=== PATIENT | female | born 1955 | race Caucasian/White ===

== ENCOUNTER 2021-04-12 07:57 | Emergency (ER) | payer MEDICARE, OTHER ==
[~2021-04-12] VITALS: Ht 170.2 cm; Wt 137.0 kg
[~2021-04-12 07:57] MED LIST: LEVO50TA8 PO; LISINOPRIL/HCTZ PO; MECL-159 PO; ONDA8TAB9 PO
[2021-04-12] MEDS ORDERED: ketorolac trometh. 30mg/ml inj. IM ONE (08:45)
[2021-04-12 09:29] LABS: CLARITY,URINE SLIGHTLY CLOUDY (Clear); COLOR,URINE YELLOW (Yellow); GLUCOSE, URINE NEGATIVE (Neg); KETONES,URINE NEGATIVE (Neg); LEUKOCYTE ESTERASE ,URINE NEGATIVE (Neg); NITRITES, URINE NEGATIVE (Neg); OCCULT BLOOD,URINE NEGATIVE (Neg); PROTEIN,URINE NEGATIVE (Neg)
[2021-04-12 09:34] LABS: UA COLLECTION TYPE CLN CATCH MIDSTREAM
[2021-04-12 09:35] LABS: MUCUS STRANDS FEW /LPF (Neg); SQUAMOUS EPITHELIAL CELL,UR MODERATE /LPF (FEW)
[2021-04-12 09:36] LABS: BACTERIA,URINE FEW /HPF (Neg); RBC,URINE 0-2 /HPF (0-2); WBC,URINE 0-4 /HPF (0-4); YEAST FEW /HPF (NEGATIVE)
[2021-04-12] MEDS ORDERED: IBUP-1985 PO (09:41)
[2021-04-12 09:58] VITALS: BP 120/88
== END 2021-04-12 10:02 | disposition home or self-care (01) ==
LOC: ER 07:59
DX: M54.5 Low back pain (principal); E11.9 Type 2 diabetes mellitus without complications; Z90.710 Acquired absence of both cervix and uterus; Z79.899 Other long term (current) drug therapy
CPT/HCPCS: 81001; 96372; 99283; J1885

== ENCOUNTER 2021-10-17 13:05 | Emergency (ER) | payer MEDICARE, OTHER ==
[~2021-10-17] VITALS: Ht 170.2 cm; Wt 143.0 kg
[~2021-10-17 13:05] MED LIST changes: +IBUP-1985 PO
[2021-10-17 13:15] VITALS: BP 160/86
[2021-10-17 14:03] LABS: BASOPHILS % (AUTO) 0.9 % (0-1); EOSINOPHILS # (AUTO) 0.1 X10'3 (0-0.9); EOSINOPHILS % (AUTO) 3.2 % (0-6); HEMOGLOBIN 16.2 g/dl (12.0-16.0); LYMPHOCYTES # (AUTO) 1.6 X10'3 (1.1-4.8); LYMPHOCYTES % (AUTO) 37.9 % (21-51); MEAN CORPUSCULAR HEMOGLOBIN 32.1 PG (27.0-31.0); MEAN CORPUSCULAR HGB CONC 34.4 g/dL (33.0-36.5); MEAN CORPUSCULAR VOLUME 93.3 FL (78-98); MEAN PLATELET VOLUME 8.7 FL (7.4-10.4); MONOCYTES # (AUTO) 0.7 X10'3 (0-0.9); MONOCYTES % (AUTO) 16.5 % (2-12); NEUTROPHILS # (AUTO) 1.8 X10'3 (1.8-7.7); NEUTROPHILS % (AUTO) 41.5 % (42-75); PLATELET COUNT 186 X10'3 (140-440); RED BLOOD COUNT 5.03 X10'6 (4.20-5.60); WHITE BLOOD COUNT 4.3 X10'3 (4.5-11.0)
--- NOTE | 2021-10-17 14:07 | NUR ---
Pt is out in the [place] area. She needs to use the restroom but refuses to use the portapotty. "Who knows how many homeless people have been in there?" "I can't do this anymore. I guess that I will have to go home and wait this out." I explained that she is high risk and cannot be let inside the building.
[2021-10-17 14:17] LABS: ALANINE AMINOTRANSFERASE 64 U/L (12-78); ALBUMIN 3.5 G/DL (3.4-5.0); ALBUMIN/GLOBULIN RATIO 0.8 (1.1-1.5); ALKALINE PHOSPHATASE 81 IU/L (46-116); ANION GAP 10 (8-16); ASPARTATE AMINO TRANSFERASE 44 U/L (10-37); BILIRUBIN,TOTAL 0.6 MG/DL (0.1-1.0); BLOOD UREA NITROGEN 11 MG/DL (7-18); BUN/CREATININE RATIO 9.7 (6.6-38.0); CALCIUM 9.4 MG/DL (8.5-10.1); CHLORIDE 101 MMOL/L (99-107); CREATININE 1.13 MG/DL (0.40-0.90); GLUCOSE 178 MG/DL (70-104); POTASSIUM 3.9 MMOL/L (3.5-5.1); SODIUM 139 MMOL/L (135-145); TOTAL CARBON DIOXIDE 28.4 MMOL/L (24-32); TOTAL PROTEIN 7.8 G/DL (6.4-8.2); eGFR 48 ML/MIN
--- NOTE | 2021-10-17 14:22 | NUR ---
PT IS COVID POSITIVE AT HOME. PT STATES THAT SHE HAS TO USE THE BATHROOM BUT REFUSES TO HER THE OUTSIDE FACILITY. PT STATES THAT SHE RAI BACK ISSUES, HAS BODY ACHES AND DOSENT FEEL GOOD. PT ADVISED THAT DUE TO HER COVID STATUS THAT SHE CAN NOT COME INTO THE ER AT THIS TIME. PT IS WANTING TO GO HOME. PROVIDER NOTIFIED, PT LWOBS PRIOR TO BEING SEEN BY PROVIDER
[2021-10-17 18:14] LABS: PLATELET ESTIMATE NORMAL; TOTAL CELLS COUNTED 100
[2021-10-17 18:15] LABS: SMUDGE CELLS 1+
== END 2021-10-17 14:50 | disposition left against medical advice (07) ==
LOC: ER 13:05
DX: R05.9 Cough, unspecified (principal); Z53.21 Procedure and treatment not carried out due to patient leaving prior to being seen by health care provider
CPT/HCPCS: 71045; 80053; 83605; 83880; 85007; 85025

== ENCOUNTER 2022-08-06 08:52 | Day surgery (SDC) | payer MEDICARE, OTHER ==
[~2022-08-06] VITALS: Ht 168.9 cm; Wt 134.1 kg
[2022-08-06 09:05] VITALS: BP 157/95
[2022-08-06] MEDS ORDERED: fentaNYL/PF 50MCG/1 ML 2ML syringe ONE (09:05)
[2022-08-06] MEDS ORDERED: MIDAZolam 1 MG/ML 5ML VIAL ONE (09:05)
[2022-08-06] MEDS ORDERED: LIDOcaine Viscous 15ml cup ONE (09:06)
[2022-08-06] MEDS ORDERED: HYDR12.55 PO (09:16)
[2022-08-06] MEDS ORDERED: LISI10TA27 PO (09:16)
[2022-08-06 11:02] VITALS: BP 110/74
[2022-08-06 11:12] VITALS: BP 112/74
[2022-08-06 11:22] VITALS: BP 118/73
[2022-08-06 11:32] VITALS: BP 131/77
== END 2022-08-06 11:45 | disposition home or self-care (01) ==
LOC: GI LAB 08:52
PROVIDERS: ATTEND Internal Medicine Gastroenterology
DX: K20.90 Esophagitis, unspecified without bleeding (principal); K44.9 Diaphragmatic hernia without obstruction or gangrene; K29.70 Gastritis, unspecified, without bleeding
CPT/HCPCS: 43239; J2250; J3010; J7030; Z7512; 88305; 88342; 99152; A4620

== ENCOUNTER 2023-06-20 14:26 | Emergency (ER) | payer MEDICARE, OTHER ==
[~2023-06-20] VITALS: Ht 167.6 cm; Wt 131.8 kg
[~2023-06-20 14:26] MED LIST changes: +HYDR12.55 PO; -IBUP-1985 PO; +LISI10TA27 PO; -LISINOPRIL/HCTZ PO; -MECL-159 PO; -ONDA8TAB9 PO
[2023-06-20 15:00] VITALS: BP 124/96; PULSE 83; TEMP 98.7; O2SAT 95
[2023-06-20] MEDS ORDERED: meperidine/PF 50mg/ml syringe IM ONE (15:15)
[2023-06-20] MEDS ORDERED: fentaNYL 50MCG/ML 2ML intranasal KIT (WASTE REMAINDER W/WITNESS) NAS STA (15:16)
[2023-06-20 15:29] VITALS: RESP 18
[2023-06-20] MEDS ORDERED: ondansetron 4mg rapidly disintigrating tab PO ONE (17:10)
[2023-06-20] MEDS ORDERED: HYDR-3973 PO (17:17)
[2023-06-20] MEDS ORDERED: ONDA4TAB12 PO (17:17)
[2023-06-21] MEDS ORDERED: HYDR-3965 PO (09:49)
== END 2023-06-20 17:25 | disposition home or self-care (01) ==
LOC: ER 14:26
DX: S42.202A Unspecified fracture of upper end of left humerus, initial encounter for closed fracture (principal); E11.9 Type 2 diabetes mellitus without complications; Z79.899 Other long term (current) drug therapy; Z90.710 Acquired absence of both cervix and uterus; W19.XXXA Unspecified fall, initial encounter; Y93.89 Activity, other specified; Y92.89 Other specified places as the place of occurrence of the external cause; Y99.8 Other external cause status
CPT/HCPCS: 73030; 96372; 99283; J2175; J3010; A4565

== ENCOUNTER 2025-05-19 12:55 | Emergency (ER) | payer MEDICARE, OTHER ==
[~2025-05-19] VITALS: Ht 170.2 cm; Wt 137.0 kg
[~2025-05-19 12:55] MED LIST changes: -LEVO50TA8 PO; +TRAM50TA2 PO
[2025-05-19 13:07] VITALS: BP 164/84; PULSE 82; RESP 16; TEMP 97.9; O2SAT 96
--- NOTE | 2025-05-19 13:17 | ELECTROCARDIOGRAPH REPORT ---
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 Germán De Luna Measurements Intervals [place] Rate: 81 P: 44 MD: 162 QRS: -61 QRSD: 104 T: 47 QT: 415 QTc: 482 Interpretive Statements Sinus rhythm LAD, consider left anterior fascicular block Low voltage, precordial leads Abnormal R-wave progression, late transition Electronically Signed On 05-19-2025 22:10:[address] Germán De Luna Please click the below link to view image of tracing.
--- NOTE | 2025-05-19 13:49 | RADIOLOGY REPORT ---
CHEST RADIOGRAPH Indication: pain Technique: Single frontal view of the chest was obtained COMPARISON: DI CHEST,TWO VIEWS on DOS: 07/04/23, CHEST,SINGLE VIEW on DOS: 10/17/21 FINDINGS: Lines and Tubes: None Lungs: Clear Pleura: No effusion. No pneumothorax. Cardiomediastinal contours: Unremarkable Bones: Unremarkable IMPRESSION: No acute disease.
--- NOTE | 2025-05-19 13:51 | RADIOLOGY REPORT ---
EXAM: DI KNEE LIMITED (AP/LAT), DI FLUORO UP TO 1HOUR CLINICAL INDICATION: pain RIGHT KNEE TECHNIQUE: DI KNEE LIMITED (AP/LAT), DI FLUORO UP TO 1HOUR Comparison: None FINDINGS/IMPRESSION: There is no evidence of acute fracture or dislocation. Advanced right knee osteoarthritis The alignment is anatomical. There is no radiopaque foreign body.
--- NOTE | 2025-05-19 13:51 | RADIOLOGY REPORT ---
CLINICAL INDICATION: pain RIGHT SHOULDER TECHNIQUE: Right DI SHOULDER, COMPLETE (MIN 2 VWS) Comparison: DI SHOULDER, COMPLETE (MIN 2 VWS) on DOS: 07/11/23, DI SHOULDER, COMPLETE (MIN 2 VWS) on D OS: 07/11/23, DI SHOULDER, COMPLETE (MIN 2 VWS) on DOS: 06/20/23 FINDINGS/IMPRESSION: : There is no evidence of acute fracture or dislocation. Soft tissues are unremarkable. Degenerative changes of the shoulder joint.
== END 2025-05-19 19:01 | disposition left against medical advice (07) ==
LOC: ER 12:55
DX: R07.9 Chest pain, unspecified (principal); M54.2 Cervicalgia; Z53.21 Procedure and treatment not carried out due to patient leaving prior to being seen by health care provider; Z88.8 Allergy status to other drugs, medicaments and biological substances
CPT/HCPCS: 71045; 73030; 73560; 93005

== ENCOUNTER 2025-06-27 08:11 | Emergency (ER) | payer MEDICARE, OTHER ==
[~2025-06-27] VITALS: Ht 167.6 cm; Wt 131.8 kg
[2025-06-27 08:13] VITALS: BP 142/80; PULSE 75; RESP 16; TEMP 98.3; O2SAT 96
--- NOTE | 2025-06-27 09:32 | RADIOLOGY REPORT ---
X-ray right knee Technique: AP lateral and oblique views REASON FOR EXAM: RIGHT KNEE PAIN FINDINGS: No fractures or dislocations. Narrowing of the medial joint compartment and patellofemoral joint compartment with osteophyte formation. No joint effusion IMPRESSION: 1. No acute bony pathology. Degenerative changes
--- NOTE | 2025-06-27 09:47 | Physician Documentation ---
History of Present Illness ~ Chief Complaint: Knee Pain Stated Complaint: KNEE PAIN Time Seen by MD: 08:53 Primary Medical Doctor: Viraj SHANE 70-year-old female, history of arthritis, presenting with right knee pain She reports a history of chronic right knee pain, has had an x-ray recently that showed [id number]. She tells me that she was recently doing physical therapy which seemed to make the pain worse. She also had a steroid injection in her knee which only temporarily helped. Over the past several days she has had worsening pain, to the point where it is difficult for her to sleep or walk. No fall or injuries. No fevers or infectious symptoms. No redness or warmth to the knee. She has been taking ibuprofen without relief. She is trying to get in with an orthopedic surgeon, but there has been a delay due to paperwork. Tetanus witin 5 years: No Medication Reconciliation Allergies: Coded Allergies: sertraline (Verified Allergy, Unknown, lethargy and diarrhea, 06/27/25) Scheduled Hydrochlorothiazide (Hydrochlorothiazide), 1 TAB PO DAILY, (Reported) Lisinopril (Lisinopril), 1 TAB PO DAILY, (Reported) Scheduled PRN Hydrocodone Bit/Acetaminophen (Hydrocodon-Acetaminophen 5-325), 1 TAB PO Q12H PRN PRN for pain ONDANSETRON ODT 4mg tablet (Ondansetron Odt), 1 TAB PO Q6H PRN PRN for nausea/vomiting Tramadol HCl (Tramadol HCl), 1 TABLET PO Q6H PRN for pain, (Reported) Past Medical History Past Medical History: Diabetes Past Surgical History: hysterectomy Alcohol Use: None Drug Use: none Lives with: Spouse Lives In: Home Occupation: employed Review of Systems Constitutional: Denies: fever Musculoskeletal: Reports: joint pain, joint swelling Physical Exam Vital Signs: Temperature: 98.3, Source: Temporal, Heart Rate: 75, Respiratory Rate: 16, BP: 142/80, Pulse Oximetry: 96, Weight: 131.820 Oxygen Flow Rate: 0 Physical Exam General: This is a pleasant but anxious appearing middle-aged woman, at bedside Heart: Regular rate and rhythm, normal-appearing peripheral perfusion Lungs: normal work of breathing, normal oxygen saturation on room air Extremities: Warm and well-perfused Right lower extremity: The patient has mild generalized swelling to the right knee. No overlying erythema or warmth. She has some mild tenderness on palpation over the anterior lateral knee. No significant pain or limitation with flexion and extension of the knee. Normal sensation to light touch below the knee. Normal-appearing perfusion to the foot. Neuro: Alert and oriented, no focal deficits Psychiatric: Anxious and tearful Progress Results/Orders Results/Orders Orders - MIN KISER MD Knee, Complete (06/27/25 08:18) Completed Orders - MIN KISER MD Knee, Complete (06/27/25 08:18) Vital Signs 06/27/25 08:13 Temp 98.3 Pulse 75 Resp 16 B/P (MAP) 142/80 Pulse Ox 96 O2 Flow Rate 0 EKG/XRAY/CT/US/VASC/MRI Bone/Soft Tissue X-Ray (Ext.) : Additional Comment I personally interpreted the x-ray, and it shows: No acute fracture. No dislocation. The patient does have arthritis and joint space narrowing. Medical Decision Making Knee Diff Dx:Considerations: Include: Arthritis, DJD, Fracture-fibula, Fracture-tibia, Gout, Septic, Sprain Additional Comment The patient presents with the acute on chronic right knee pain. On exam there was no evidence of an infection including no redness or warmth. X-ray shows no acute fracture. Overall this appears consistent with worsening arthritis type p ain in the setting of physical therapy and activity changes. She already has been trying NSAIDs without relief. She is already trying to get into see an orthopedic surgeon but there was a delay. She will be given pain medication and symptomatic treatment including an Jean Carlos wrap. Return precautions given. She will continue to try and follow up with the orthopedic surgeon. Departure Time of Disposition: 10:05 Disposition: 01 HOME / SELF CARE / HOMELESS Impression: Primary Impression: Knee pain Condition: Stable Discharge Instructions: Arthritis, Chronic Knee Pain, Adult Referrals: NO PRIMARY CARE PROVIDER (PCP) Prescriptions ONDANSETRON ODT 4mg tablet (ONDANSETRON ODT) 4 Mg Tab.rapdis 1 TAB PO Q6H PRN PRN for nausea/vomiting for 4 Days, #16 TAB 1 Refill Prov: MIN KISER MD 06/27/25 Hydrocodone Bit/Acetaminophen (Hydrocodon-Acetaminophen 5-325) 5 Mg-325 Mg Tablet 1 TAB PO Q12H PRN PRN for pain for 5 Days, #10 TAB Prov: MIN KISER MD 06/27/25 Education Educated: Patient, Family Educated regarding: diagnosis, treatment, need for follow up Signature Scribe Signature: damaris Attestation: MIN Burks MD Jun 27, 2025 09:47
[2025-06-27] MEDS ORDERED: ONDA-243 PO (10:07)
[2025-06-27] MEDS ORDERED: HYDR-3964 PO (10:07)
== END 2025-06-27 10:33 | disposition home or self-care (01) ==
LOC: ER 08:11
DX: M25.561 Pain in right knee (principal); E11.9 Type 2 diabetes mellitus without complications; Z88.8 Allergy status to other drugs, medicaments and biological substances; Z90.710 Acquired absence of both cervix and uterus
CPT/HCPCS: 73564; 99283